=== PATIENT | female | born 1940 | race Caucasian/White ===

== ENCOUNTER 2016-09-23 10:00 | Inpatient (IN) | payer MEDICARE, OTHER ==
[~2016-09-23] VITALS: Ht 165.1 cm; Wt 81.1 kg
--- NOTE | ~2016-09-23 | DS ---
PATIENT'S NAME: GAVIN DONALDSON [facility] AGE: 76 Y [address] ROOM: [place] [address] LOCATION: [facility] [place] ADMIT DATE: 09/29/2016 Discharge Summary DISCHARGE DATE: 10/02/2016 FAMILY PHYSICIAN: Dorene Hill MD ATTENDING PHYSICIAN: Jae Rodríguez ADMITTING DIAGNOSES: 1. Lumbar degenerative disk disease. 2. Lumbar spondylolisthesis. 3. Lumbar spinal stenosis. 4. Lumbar radiculopathy. 5. Low back pain. DISCHARGE DIAGNOSES: 1. Lumbar degenerative disk disease. 2. Lumbar spondylolisthesis. 3. Lumbar spinal stenosis. 4. Lumbar radiculopathy. 5. Low back pain. PROCEDURES PERFORMED DURING THIS HOSPITALIZATION: Lumbar decompression and fusion. CONSULTATION: Hospitalist and Physical Therapy. ADMITTING HISTORY AND PHYSICAL: Briefly, this is a 76-year-old female who I have followed for symptomatic lumbar spine disease. She had failed conservative treatment, was offered surgery in the form of a lumbar decompression and fusion. HOSPITAL COURSE: The patient was admitted through same-day surgery. She underwent the aforementioned surgical procedure. Please see dictated operative note for details. She was transferred from the recovery room to the hospital yu in stable condition. She recovered without difficulty and had stable vital signs. She was gradually mobilized with physical therapy. De Souza catheter was in, and she was able to void spontaneously. After pain is well controlled and she is mobilizing well, she will be discharged home in stable condition with the following instructions: Activity is light. She is to wear her brace when she is out of bed. She will follow up with me in the clinic in 1 week's time. She will be discharged home with pain medication and muscle relaxers to use as needed. Activity level is light with the use of her back brace. She is to call if she has any increasing pain, fevers, chills, drainage from her back, weakness, bowel and bladder dysfunction, or if any other concerns or issues arise. All of their questions PATIENT'S NAME: GAVIN DONALDSON [facility] AGE: 76 Y [address] ROOM: [address] [address] LOCATION: [facility] [place] ADMIT DATE: 09/29/2016 Discharge Summary DISCHARGE DATE: 10/02/2016 FAMILY PHYSICIAN: Dorene Hill MD ATTENDING PHYSICIAN: Jae Rodríguez were answered prior to discharge. MD SANDRA COSMEM/modl /[id number] d: 10/02/162018 t: 10/10/16 0804, DISCHARGE SUMMARY
--- NOTE | ~2016-09-23 | OR ---
PATIENT'S NAME: GAVIN DONALDSON [facility] AGE: 76 Y [address] ROOM: [place] [address] LOCATION: [facility] ADMIT DATE: 09/29/2016 OR/Procedure Report DISCHARGE DATE: FAMILY PHYSICIAN: Dorene Hill MD ATTENDING PHYSICIAN: Stanislaw Rodríguez SURGEON: Stanislaw Rodríguez MD FLIGHT SOFTWARE TEST ENGINEER: Gun Sealing Machine Operator: ALYSSA Lam. DATE OF PROCEDURE: 09/29/2016 PREOPERATIVE DIAGNOSES: 1. Lumbar degenerative disk disease. 2. Lumbar spondylolisthesis. 3. Lumbar spinal stenosis. 4. Lumbar radiculopathy. 5. Low back pain. POSTOPERATIVE DIAGNOSES: 1. Lumbar degenerative disk disease. 2. Lumbar spondylolisthesis. 3. Lumbar spinal stenosis. 4. Lumbar radiculopathy. 5. Low back pain. PROCEDURE PERFORMED: 1. Lumbar laminectomy of L3 with decompression of L3-4 interspace. 2. Lumbar fusion of L3-4, combined technique, including transforaminal lumbar interbody fusion and posterolateral fusion. 3. Application of spinal prosthetic cage, L3-4 interspace. 4. Application of pedicle screw instrumentation, nonsegmental, single jaswinder, bilateral, L2-L4. 5. Ramona of bone marrow aspirate, transpedicular technique, from vertebral body. ANESTHESIA: General. ESTIMATED BLOOD LOSS: 150 mL. COMPLICATIONS: None. SPECIMENS: None. FINDINGS: Severe stenosis and instability, L3-4. INSTRUMENTATION USED: Globus [place] pedicle screw fixation and caliber PATIENT'S NAME: GAVIN DONALDSON [facility] AGE: 76 Y [address] ROOM: [place] [address] LOCATION: [facility] ADMIT DATE: 09/29/2016 OR/Procedure Report DISCHARGE DATE: FAMILY PHYSICIAN: Dorene Hill MD ATTENDING PHYSICIAN: Stanislaw Rodríguez interbody cage. OPERATIVE INDICATIONS: The patient is a 76-year-old female, who has symptomatic lumbar spinal stenosis, spondylolisthesis, and radiculopathy. The patient failed conservative treatment. She was offered surgery in the form of a lumbar decompression and fusion. The details, risks, benefits, and options were explained, and she freely consented to surgery. OPERATIVE NARRATIVE: After the patient was correctly identified and operative site initialed, she was taken back to the operating room and placed in a supine position. After general anesthesia was induced, she was placed into the prone position on the Floyd table with all bony prominences well padded and protected. The back was prepped and draped in the usual sterile fashion. A time-out was taken verifying the patient and procedure. After she received IV antibiotics and the back was prepped and draped in the usual sterile fashion, time-out was taken. 10 mL of 0.25% Marcaine with epinephrine was injected in line with the incision. A 10 blade was used to make a midline incision, and dissection was taken down through the skin and subcutaneous tissue with electrocautery. Subcutaneous tissue and the fascia were opened in the midline with the Bovie electrocautery. Subperiosteal dissection was performed to expose the posterior elements. Kerrison was placed on the lamina at L3 and verified at the L3-4 interspace. Self-retaining tractors were placed in the wound after the transverse processes were exposed. Laminectomy was performed at L3 by removing the spinous process and thinning the lamina. High speed drill bur was also used to thin the lamina, and Kerrisons used to complete the decompression. The central canal recess was very stenotic. After decompression was complete, the right-sided facet was resected to expose the exiting nerve root and provide access into the transforaminal region. Gentle medial retraction on the dura and nerve root allowed identification of the disk space. It was incised and debrided using pituitaries, curettes, and disk space michael. After disk space was evacuated and disk prepared for fusion, the endplates were denuded of cartilage, and it was packed with bone graft and BMP. The cage was selected packed with bone graft and BMP and impacted in position. The cage was expanded. Next, the reference ring clamp was attached to the L2 spinous process, and the O-Arm was brought in for reference scan. Under Stealth navigation, the pedicles at L3 and L4 were localized. Prior to screw placement in the right L3, a bone marrow aspirate needle was introduced into the vertebral body through the prepared pedicle hole, and 5 mL of bone marrow aspirate was obtained and mixed with bone graft dietetic technician. Pedicle screws were placed at each level on both sides and then verified on confirmation scan with the O-Arm. Next, the rods were reduced to the screws. Set caps were placed and tightened to the appropriate torque. High-speed bur used to decorticate the left-sided transverse processes of L3 and L4. The bone graft dietetic technician and bone marrow aspirate were packed in the left lateral gutter for the posterolateral fusion. The wound was irrigated PATIENT'S NAME: GAVIN DONALDSON [facility] AGE: 76 Y [address] ROOM: [address] [address] LOCATION: [facility] ADMIT DATE: 09/29/2016 OR/Procedure Report DISCHARGE DATE: FAMILY PHYSICIAN: Dorene Hill MD ATTENDING PHYSICIAN: Stanislaw Rodríguez and dried, and a small amount of DuraSeal was injected over the disk space to isolated from the spinal canal. 1 g of vancomycin powder was applied between the superficial and deep tissues. The fascia was closed with interrupted #1 Vicryl suture, 0 Vicryl in subcutaneous tissue, and cosme in the skin. Sterile dressing was applied, and the patient was awakened from anesthesia and taken to the recovery room in stable condition. land surveyor assistant was necessary in this procedure for evacuation of blood during decompression, assistance with placement of the TLIF cage and pedicle screws for instrumentation, and stabilization. STANISLAW RODRÍUGEZ MD JMM/modl /[id number] d: 09/29/16 2315 t: 10/10/16 0801, OPERATIVE SUMMARY
[~2016-09-23 10:00] MED LIST: ALEVE220 MG PO; COZAAR25 MG PO; LEVOTHROID(SY175 MCG PO
--- NOTE | 2016-09-30 04:47 | NUR ---
Significant Event: Alert and oriented. Vital signs stable. On room air. Dressing to back reinforced at beginning of shift with ABD and medipore. Reinforced a small area to the left of the dressing at 0230 with gauze and medipore. Neurochecks are WNL. Denies headache or numbness/tingling. Pt ambulated in room with 1 assist, gait belt and walker, tolerated fine. De Souza in place, plan to remove at 0600. Midline IV to RUE with fluids running at 125 ml/hr. Tramadol and OFIRMEV given last at 0410. Flexeril given X1 at 2335. Pt has rested well. Assisted in repositioning side to side. Teds and calf pneumatics. Follow up:
[2016-09-30 06:15] LABS: BASOPHIL % 0.1 %; EOSINOPHIL % 0.1 %; HEMATOCRIT 34.5 % (33.0-46.0); HEMOGLOBIN 11.6 g/dL (10.0-15.0); IMMATURE GRANULOCYTE % 0.4 %; LYMPHOCYTE # 0.8 K/uL (0.8-4.0); LYMPHOCYTE % 9.6 %; MCH 27.8 pg (27.0-34.0); MCHC 33.6 gm/dL (32.0-36.5); MCV 82.5 fl (83.0-98.0); MONOCYTE # 0.9 K/uL (0.0-1.0); MONOCYTE % 10.8 %; NEUTROPHIL # (ANC) 6.6 K/uL (1.8-7.8); NRBC % 0 /100WBC (0-0.00); PLATELET COUNT 168 K/uL (150-450); RBC 4.18 M/uL (3.50-5.50); RDW-CV 12.9 % (11.9-14.6); WBC 8.4 K/uL (4.0-11.0)
--- NOTE | 2016-09-30 09:50 | NUR ---
Introduced self/role to patient, had stepped out but is here. She stated they moved a bed downstairs because there are no bedrooms on the main level. She has 2 daughters in town and has a great that helps out a lot around the house already. Denied the need for any DME. She was under the impression she would be here another day. Added my name to her marker board, will continue to follow.
--- NOTE | 2016-09-30 12:59 | NUR ---
Significant Event: AOx3. VSS. CSM WNL. Up with 1 assist with walker and back brace. Voids without difficulty. Dressing is dry and intact. IV is SL. Ultram given for pain. Follow up:Planning on going home tomorrow to [place].
--- NOTE | 2016-09-30 17:52 | NUR ---
Significant Event: Patient transferred from and [facility] at 1530. Patient is alert and oriented. Up in the recliner and to the bathroom with 1 assist. Back brace on when patient is out of bed. Dressing to her back is intact with old drainage. Midline IV to her L) upper arm. Follow up: Monitor pain. Possible dismissal tomorrow.
--- NOTE | 2016-10-01 05:21 | NUR ---
Significant Event: Sleeping for long periods tonight. Afebrile, all other VSS. Tramadol (50mg) given x4 last at 0424 for pain and Flexeril (5mg) given x1 at 0424 for spasms. Dressing to back remains intact. Did have to reinforce dressing x1 as there was a moderate amount fo serosanguinous drainage leaking through old dressing. CSMs to bilateral upper and lower extremities WNL. Denies any numbness or tingling. Ambulates to bathroom with SBA. Possible home today. Follow up:
--- NOTE | 2016-10-01 12:13 | NUR ---
UP TO THE BATHROOM WITH SBA, WHEELED WALKER, AND CORSET BRACE. DRESSING HAD A LARGE AMOUNT OF BLOOD DRESSING. DR. GRAMAJO CHANGED DRESSING TO MEPILEX. HAD 2 ULTRAM AT 0845. C/O BURNING AT INCISIONAL SITE. CHEECKS VERY FLUSHED. MIDLINE IV TO LEFT UPPER ARM. PLAN ON HOME THIS AFTERNOON.
--- NOTE | 2016-10-01 17:23 | NUR ---
Significant Event: Patient alert and oriented. Has a powerglide with no blood return to the left upper arm that is saline locked. Been up in the halls today ambulating. Brace on when up. Sitting in the chair throughout the day. Poor appetitie due to cotton mouth, tried mouth wash and mouth mositureizer. Gave her one dose of flexeril this afternoon @1315. She recieved one dose of ultram at 0845 this morning. Her dressing was changed by this afternoon. Moves with a stand by assist. Voiding without difficulty, did have one episode of incontinence. Calm and cooperative with all cares. Follow up:pain control, ?Discharge tomorrow 10/02/16
--- NOTE | 2016-10-01 17:52 | NUR ---
SEE NURSES NOTE ON 10/01
--- NOTE | 2016-10-02 04:57 | NUR ---
Significant Event: Sleeping for long periods tonight. Afebrile, all other VSS. Tramadol (50mg) given x1 at 2123 for pain and Flexeril (5mg) given x1 at 2122. Up to bathroom with SBA. CSM to bilateral upper and lower extremities WNL. Meplex dressing to back remains dry and intact. Small to moderate amount of shadow drainage noted to dressing. Midline PIV to L) upper arm in patent. Flushes but no blood return. Drinking and voiding adequate amounts. Plans for home today. Follow up:
[2016-10-02] MEDS ORDERED: SURFAK240 MG PO (11:08)
[2016-10-02] MEDS ORDERED: ULTRAM50 MG PO (11:09)
[2016-10-02] MEDS ORDERED: FLEXERIL10 MG PO (11:09)
--- NOTE | 2016-10-02 13:09 | NUR ---
Significant Event: CSM WNL to upper and lower extremities. Dressing to lower back changed, mepelex dressing applied and remains, clean/dry/intact. Taking flexeril and ultram for pain with good relief. VSS, Afebrile. Written and verbal dismissal instructions given and voices understanding. Follow up:Dismissed.
== END 2016-10-02 13:09 | disposition disaster alternative care site (69) | DRG 460 ==
LOC: G3N 09-29 10:28 → GMSU 09-29 10:28 → G3N 09-29 17:12 → GMSU 09-30 16:10
PROVIDERS: ADMIT Orthopaedic Surgery Orthopaedic Surgery of the Spine
PROC: 0SG00A1 (ICD-10-PCS; principal; 2016-09-29)
DX: M43.16 Spondylolisthesis, lumbar region (principal); I10 Essential (primary) hypertension; M51.36 Other intervertebral disc degeneration, lumbar region; M16.11 Unilateral primary osteoarthritis, right hip; E03.9 Hypothyroidism, unspecified; M70.71 Other bursitis of hip, right hip; M54.16 Radiculopathy, lumbar region; Z97.4 Presence of external hearing-aid; Z90.13 Acquired absence of bilateral breasts and nipples
CPT/HCPCS: C1713; C1751; J0131; J0171; J0690; J1100; J2250; J2405; J3010; J3360; J3370; J3480; J7030